=== PATIENT | male | born 1975 | race Caucasian/White ===

== ENCOUNTER 2019-05-06 06:28 | Emergency (ER) | payer BC ==
[~2019-05-06] VITALS: Ht 182.9 cm; Wt 90.7 kg
[2019-05-06 07:48] LABS: HEMATOCRIT 47.2 % (42.0-52.0); HEMOGLOBIN 16.5 gm/dL (14.0-18.0); MCH 28.3 pg (26.0-34.0); MCHC 34.9 g/dL (28.0-37.0); MCV 81.1 fL (80.0-100.0); MPV 7.8 fl. (7.2-11.1); RBC 5.81 mil/uL (4.50-6.00); RDW-CV 15.6 % (10.5-14.5); WBC 5.3 thou/uL (4.0-11.0)
[2019-05-06 07:58] LABS: CREATININE 1.1 mg/dL (0.6-1.3); POTASSIUM 4.2 mmol/L (3.5-5.1)
[2019-05-06 08:03] LABS: ALBUMIN 3.8 g/dL (3.4-5.0); TOTAL BILIRUBIN 0.7 mg/dL (<0.1-1.0); TOTAL PROTEIN 7.5 g/dL (6.4-8.2)
[2019-05-06] MEDS ORDERED: IBUPROFEN 800800 M1 PO (08:17)
[2019-05-06] MEDS ORDERED: FLEXERIL PO (08:17)
[2019-05-06 08:39] VITALS: BP 149/94
--- NOTE | 2019-05-07 16:32 | EKG ---
[place] [address] ELECTROCARDIOGRAM REPORT Name: TAIWO HOFFMAN 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
== END 2019-05-06 08:42 | disposition home or self-care (01) ==
LOC: M.ERS 06:28
PROVIDERS: Emergency Medicine Emergency Medical Services
DX: R07.89 Other chest pain (principal); V89.2XXA Person injured in unspecified motor-vehicle accident, traffic, initial encounter; W22.11XA Striking against or struck by driver side automobile airbag, initial encounter; Y93.89 Activity, other specified; Y92.89 Other specified places as the place of occurrence of the external cause; Y99.8 Other external cause status